=== PATIENT | female | born 1965 | race American Indian/Alaskan Native ===

== ENCOUNTER 2016-08-14 15:24 | Outpatient (CLI) | payer OTHER ==
--- NOTE | 2016-08-15 08:00 | Vascular Lab Report ---
LEFT LOWER EXTREMITY ARTERIAL DUPLEX: REASON FOR EXAM: Left leg pain. COMMENTS ON THE LEFT: Triphasic waveforms are seen proximally. Biphasic waveforms are seen distally. No significant velocity gradients are identified. No focal significant plaque is identified. Findings are consistent with normal perfusion. Findings are consistent with the ability to heal distal wounds. IMPRESSION: LEFT:Essentially normal arterial flow.
== END 2016-08-14 15:25 | disposition home or self-care (01) ==
LOC: VAS 15:24
PROVIDERS: ATTEND Family Medicine Adult Medicine
DX: M79.605 Pain in left leg (principal); R60.0 Localized edema

== ENCOUNTER 2016-10-11 15:02 | Outpatient (CLI) | payer OTHER ==
--- NOTE | 2016-10-12 08:43 | Mammography Report ---
Bilateral mammogram: Compared to 07/22/14. CAD study utilized. Findings: Predominance adipose tissue bilaterally. No mass or microcalcification. Benign axillary nodes. Impression: Benign findings. Annual followup recommended. BI-RADS CATEGORY: 2 = Benign ACR BI-RADS MAMMOGRAPHIC CODES: 0 = Needs additional imaging evaluation; 1 = Negative; 2 = Benign; 3 = Probably benign; 4 = Suspicious; 5 = Malignant; 6 = Known biopsy-proven malignancy COMMENT: 1. Dense breast tissue, i.e., adenosis, fibrocystic changes, etc., may obscure an underlying neoplasm. 2. Approximately 10% of cancers are not detected with mammography. 3. A negative mammography report should not delay biopsy if a clinically suspicious mass is present. COMMENT: Patient follow-up letters are generated in [employer].
== END 2016-10-11 15:03 | disposition home or self-care (01) ==
LOC: MAMMO 15:02
PROVIDERS: ATTEND Family Medicine Adult Medicine
DX: Z12.31 Encounter for screening mammogram for malignant neoplasm of breast (principal)
CPT/HCPCS: 77067; G0202

== ENCOUNTER 2017-10-22 14:52 | Outpatient (CLI) | payer OTHER ==
--- NOTE | 2017-10-23 13:30 | Mammography Report ---
BILATERAL DIGITAL SCREENING MAMMOGRAM with CAD: 10/22/17 14:52:00 CLINICAL: Routine screening.Chronic inversion of the right nipple. COMPARISON:10/11/16 FINDINGS: The breasts are almost entirely fatty.Stable right nipple inversion. No mass, architectural distortion or suspicious calcifications. IMPRESSION: No mammographic evidence of malignancy. BI-RADS CATEGORY: 2 -- Benign RECOMMENDATION: Routine mammographic screening in one year. COMMENT: Patient follow-up letters are generated by our [employer] application.
== END 2017-10-22 14:53 | disposition home or self-care (01) ==
LOC: MAMMO 14:52
PROVIDERS: ATTEND Family Medicine Adult Medicine
DX: Z12.31 Encounter for screening mammogram for malignant neoplasm of breast (principal)
CPT/HCPCS: 77067